=== PATIENT | female | born 1970 | race Caucasian/White ===

== ENCOUNTER 2016-12-26 15:15 | Emergency (ER) | payer BC ==
[2016-12-26 15:33] VITALS: RESP 18
--- NOTE | 2016-12-26 17:04 | ED ---
Recheck HPI - General Chief Complaint: Recheck/Abnormal Lab/Rx Stated Complaint: Abnormal labs Time Seen by Provider: 12/26/16 16:28 Source: patient, RN notes reviewed Mode of arrival: ambulatory Limitations: no limitations - History of Present Illness Initial Comments: 46-year-old male presents emergency Department with chief complaint of anemia. Patient states she has been very tired and fatigued and which she saw her primary care physician Scot sanchez. She states that they checked her thyroid function which was normal. Patient states she does take medication for this. Patient also states that they checked her hemoglobin which the called her today and told her was low that she needed to go to the emergency department. They told her it was 7. Patient denies any melena or hematochezia. Denies any hematemesis copremesis. Patient denies any heavy vaginal bleeding. She states she does take control currently. Patient denies chest pain, shortness of breath. She states she does get very fatigued with any exertion. Patient has no history of anemia other than taking iron tablets when she was . - Related Data Home Medications Medication Instructions Recorded Confirmed Atorvastatin [Lipitor] 10 mg PO HS 10/30/15 12/26/16 Cetirizine HCl [Zyrtec] 10 mg PO DAILY 10/30/15 12/26/16 Levothyroxine Sodium [Levoxyl] 100 mcg PO DAILY 10/30/15 12/26/16 Norgestimate-Ethinyl Estradiol 1 tab PO DAILY 10/30/15 12/26/16 [Tri-Sprintec Tablet] diphenhydrAMINE [Benadryl] 25 mg PO HS PRN 12/11/15 12/26/16 Previous Rx's Medication Instructions Recorded Famotidine [Pepcid] 20 mg PO BID #30 tablet 07/07/16 Ferrous Sulfate [Feosol] 325 mg PO BID #30 tab 12/26/16 Allergies Allergy/AdvReac Type Severity Reaction Status Date / Time Sulfa (Sulfonamide Allergy Unknown Verified 12/26/16 17:03 Antibiotics) Review of Systems ROS Statement: Those systems with pertinent positive or pertinent negative responses have been documented in the HPI. ROS Other: All systems not noted in ROS Statement are negative. Past Medical History Past Medical History: No Reported History, Thyroid Disorder History of Any Multi-Drug Resistant Organisms: None Reported Past Surgical History: Ear Surgery, Orthopedic Surgery Past Psychological History: No Psychological Hx Reported Smoking Status: Never smoker Past Alcohol Use History: None Reported Past Drug Use History: None Reported General Exam Limitations: no limitations General appearance: alert, in no apparent distress Neck exam: Present: normal inspection, full ROM. Absent: tenderness, meningismus, lymphadenopathy Respiratory exam: Present: normal lung sounds bilaterally. Absent: respiratory distress, wheezes, rales, rhonchi, stridor Cardiovascular Exam: Present: regular rate, normal rhythm, normal heart sounds. Absent: systolic murmur, diastolic murmur, rubs, gallop, clicks GI/Abdominal exam: Present: soft, normal bowel sounds. Absent: distended, tenderness, guarding, rebound, rigid Rectal exam: Present: normal inspection, heme (-) stool, other (Exam performed with Lamar PABON). Absent: black stool, bloody stool, hemorrhoids Neurological exam: Present: alert, oriented X3, CN II-XII intact Skin exam: Present: warm, dry, intact, normal color. Absent: rash Course Vital Signs 12/26/16 12/26/16 15:27 17:01 Temperature 98.5 F Pulse Rate 105 H Pulse Rate [ 88 Right Radial] Respiratory 18 Rate Blood Pressure 141/75 O2 Sat by Pulse 100 Oximetry Medical Decision Making - Medical Decision Making 46-year-old female presented emergency department for low anemia. Patient's hemoglobin currently is a 8.3. Patient's vitals are stable. Patient appears to have iron deficiency anemia. Patient be started on iron supplements at this time and while falls for possible scopes including EGD/colonoscopy. Return parameters were discussed. Patient family agreed to plan. - Lab Data Result diagrams: 12/26/16 16:55 12/26/16 16:55 Lab Results 12/26/16 12/26/16 12/26/16 Range/Units 16:55 16:55 16:55 WBC 5.3 (3.8-10.6) k/uL RBC 4.11 (3.80-5.40) m/uL Hgb 8.3 L (11.4-16.0) gm/dL Hct 29.5 L (34.0-46.0) % MCV 71.7 L (80.0-100.0) fL MCH 20.1 L (25.0-35.0) pg MCHC 28.0 L (31.0-37.0) g/dL RDW 15.8 H (11.5-15.5) % PT 10.1 (9.0-12.0) sec INR 1.0 (<1.1) APTT 22.1 (22.0-30.0) sec Sodium 144 (137-145) mmol/L Potassium 3.8 (3.5-5.1) mmol/L Chloride 103 (98-107) mmol/L Carbon Dioxide 28 (22-30) mmol/L Anion Gap 13 mmol/L BUN 9 (7-17) mg/dL Creatinine 0.74 (0.52-1.04) mg/dL Est GFR (MDRD) Af Amer >60 (>60 ml/min/1.73 sqM) Est GFR (MDRD) Non-Af >60 (>60 ml/min/1.73 sqM) Glucose 95 (74-99) mg/dL Calcium 9.6 (8.4-10.2) mg/dL Total Bilirubin 0.4 (0.2-1.3) mg/dL AST 29 (14-36) U/L ALT 29 (9-52) U/L Alkaline Phosphatase 76 (38-126) U/L Total Protein 8.2 (6.3-8.2) g/dL Albumin 4.6 (3.5-5.0) g/dL Stool Occult Blood (Negative) 12/26/16 Range/Units 17:27 WBC (3.8-10.6) k/uL RBC (3.80-5.40) m/uL Hgb (11.4-16.0) gm/dL Hct (34.0-46.0) % MCV (80.0-100.0) fL MCH (25.0-35.0) pg MCHC (31.0-37.0) g/dL RDW (11.5-15.5) % PT (9.0-12.0) sec INR (<1.1) APTT (22.0-30.0) sec Sodium (137-145) mmol/L Potassium (3.5-5.1) mmol/L Chloride (98-107) mmol/L Carbon Dioxide (22-30) mmol/L Anion Gap mmol/L BUN (7-17) mg/dL Creatinine (0.52-1.04) mg/dL Est GFR (MDRD) Af Amer (>60 ml/min/1.73 sqM) Est GFR (MDRD) Non-Af (>60 ml/min/1.73 sqM) Glucose (74-99) mg/dL Calcium (8.4-10.2) mg/dL Total Bilirubin (0.2-1.3) mg/dL AST (14-36) U/L ALT (9-52) U/L Alkaline Phosphatase (38-126) U/L Total Protein (6.3-8.2) g/dL Albumin (3.5-5.0) g/dL Stool Occult Blood Negative (Negative) Disposition Clinical Impression: Anemia, Iron deficiency Disposition: HOME SELF-CARE Condition: Stable Instructions: Iron Deficiency Anemia (ED) Additional Instructions: Please return to the Emergency Department if symptoms worsen or any other concerns. Prescriptions: Ferrous Sulfate [Feosol] 325 mg PO BID #30 tab Referrals: Salvatore Uriarte DO [Primary Care Provider] - 1-2 days Steven Walker MD [Medical Doctor] - 1-2 days Time of Disposition: 17:50
[2016-12-26 17:20] LABS: Aty Lym Flag Slight; CH 20.4; CHCM 28.7; HCT 29.5 % (34.0-46.0); HDW 3.89; HGB 8.3 gm/dL (11.4-16.0); Hypochromasia Marked; MCH 20.1 pg (25.0-35.0); MCV 71.7 fL (80.0-100.0); Microcytosis Moderate; Poikilocytosis Slight; Prothrombin Time 10.1 sec (9.0-12.0); RBC 4.11 m/uL (3.80-5.40); RDW 15.8 % (11.5-15.5); WBC 5.3 k/uL (3.8-10.6); WBC (Perox) 5.37
[2016-12-26 17:22] LABS: ALT 29 U/L (9-52); AST 29 U/L (14-36); Alkaline Phosphatase 76 U/L (38-126); Anion Gap 13 mmol/L; Blood Urea Nitrogen 9 mg/dL (7-17); Calcium 9.6 mg/dL (8.4-10.2); Carbon Dioxide 28 mmol/L (22-30); Chloride 103 mmol/L (98-107); Glucose 95 mg/dL (74-99); Non-African American GFR(MDRD) >60 (>60 ml/min/1.73 sqM); Potassium 3.8 mmol/L (3.5-5.1); Sodium 144 mmol/L (137-145); Total Bilirubin 0.4 mg/dL (0.2-1.3); Total Protein 8.2 g/dL (6.3-8.2)
[2016-12-26 17:29] LABS: Partial Thromboplastin Time 22.1 sec (22.0-30.0)
[2016-12-26 17:58] VITALS: BP 139/67; PULSE 87; TEMP 99.2
[2016-12-26 18:06] LABS: Add Differential Manual Differential
[2016-12-26 18:08] LABS: Nucleated Red Blood Cells 0 /100 WBC (0-0); Total Cells Counted 100
[2016-12-26 18:09] LABS: Manual Review Performed; Ovalocytes Present; Polychromasia Present
== END 2016-12-26 17:58 | disposition home or self-care (01) ==
LOC: EC 15:15
DX: D50.9 Iron deficiency anemia, unspecified (principal); E07.9 Disorder of thyroid, unspecified; Z79.3 Long term (current) use of hormonal contraceptives; Z79.899 Other long term (current) drug therapy; Z88.2 Allergy status to sulfonamides
CPT/HCPCS: 36415; 80053; 82272; 85025; 85610; 85730; 86850; 86900; 86901; 99283

== ENCOUNTER 2017-01-10 11:00 | Day surgery (SDC) | payer BC ==
[2017-01-08 15:27] VITALS: BMI 34.0
[~2017-01-10 11:00] MED LIST: LACTATED RINGERS 1,000 ML IV SCH
[2017-01-10 11:26] VITALS: TEMP 99.7
[2017-01-10] MEDS ORDERED: LIDOCAINE 1% 20 ML VIAL (10MG/ML) FOR IV START INTRADERMA ONE (11:36)
[2017-01-10] MEDS ORDERED: LIDOCAINE 1% INJ 10MG/ML (20 ML MDV) ONE (12:22)
[2017-01-10] MEDS ORDERED: GLUCAGON 1 MG/ML VIAL ONE (12:22)
[2017-01-10] MEDS ORDERED: PROPOFOL 10 MG/ML 20 ML VIAL IV ONE (12:22)
--- NOTE | 2017-01-10 12:54 | P.GSHP ---
History of Present Illness H&P Date: 01/10/17 Chief Complaint: Anemia, GI bleed This a 46-year-old female who's had significant anemia. Her hemoglobin is 7.5 range. She presents today for evaluation for GI bleed. He'll undergo upper and lower endoscopy. - Constitutional Constitutional: Reports as per HPI Past Medical History Past Medical History: Thyroid Disorder Additional Past Medical History / Comment(s): anemia History of Any Multi-Drug Resistant Organisms: None Reported Past Surgical History: Ear Surgery, Orthopedic Surgery Past Anesthesia/Blood Transfusion Reactions: No Reported Reaction Past Psychological History: No Psychological Hx Reported Smoking Status: Never smoker Past Alcohol Use History: None Reported Past Drug Use History: None Reported - Past Family History Mother Family Medical History: Cancer Additional Family Medical History / Comment(s): breast Medications and Allergies Home Medications Medication Instructions Recorded Confirmed Type Atorvastatin [Lipitor] 10 mg PO HS 10/30/15 01/10/17 History Levothyroxine Sodium [Levoxyl] 100 mcg PO DAILY 10/30/15 01/10/17 History Norgestimate-Ethinyl Estradiol 1 tab PO DAILY 10/30/15 01/10/17 History [Tri-Sprintec Tablet] Allergies Allergy/AdvReac Type Severity Reaction Status Date / Time Sulfa (Sulfonamide Allergy Unknown Verified 01/08/17 15:02 Antibiotics) Surgical - Exam Vital Signs Temp Pulse Resp BP Pulse Ox 99.7 F H 105 H 16 136/84 100 01/10/17 11:23 01/10/17 11:23 01/10/17 11:23 01/10/17 11:23 01/10/17 11:23 - General well developed, no distress - Eyes PERRL - ENT normal pinna - Neck no masses - Respiratory normal expansion - Cardiovascular Rhythm: regular - Abdomen Abdomen: soft Assessment and Plan Plan: History of anemia. We'll perform EGD colonoscopy. To evaluate for GI bleed.
[2017-01-10 13:34] VITALS: RESP 18
[2017-01-10 13:49] VITALS: BP 144/80; PULSE 78
--- NOTE | 2017-01-10 14:35 | P.OP ---
Date of Procedure: 01/10/17 Preoperative Diagnosis: GI bleed Postoperative Diagnosis: Mild antral gastritis No evidence of upper GI bleed Lower GI bleed Right colon polyp Large left colon polyp at 40 cm incompletely removed secondary to size of the polyp Procedure(s) Performed: EGD Colonoscopy Anesthesia: MAC Surgeon: Shane Hand Pathology: other (Antrum, right colon polyp, left colon) Condition: stable Disposition: PACU Description of Procedure: The patient's placed on the endoscopy table in the lateral position. She received IV sedation. The gastroscope some placed oropharynx and passed into the esophagus and stomach. Scope was then placed through the pylorus. The first and second portion duodenum appeared normal. There is known to blood in the duodenum. Scope was then brought back the antrum and this was minimal inflamed a biopsies performed. Scope was unretroflexed and remainder of the stomach appeared normal. There was no hiatal hernia. The GE junction was at 40 cm. The distal esophagus appeared normal. The proximal esophagus appeared normal. Scope was withdrawn. Next digital rectal exam was performed which revealed a small amount of blood on the examining finger. The flexible colonoscope was then placed patient anus passed throughout the entire colon. The ileocecal valve was visually is. The cecum appeared normal. In the ascending colon there is a small polyp seen this is removed with a snare. Scope was then withdrawn remainder the transverse colon appeared normal. The descending colon was examined at the 40 cm glenna there was a large peduncular polyp which took up most of the lumen of the colon. This was removed in pieces with a biopsy forcep and the snare. However it was impossible to remove the entire polyp due to the size. The was in spasm and it was impossible to ink spot the area of the polyp. This point the scope was withdrawn remainder the descending sigmoid and rectum was normal. Scope was then withdrawn from the patient. Patient and her family were given the results of colonoscopy. She'll follow-up the office next week she'll undergo repeat colonoscopy in about 2 weeks.
== END 2017-01-10 14:31 | disposition home or self-care (01) ==
LOC: ORWHC2ENDO 11:00
PROVIDERS: ATTEND Surgery
DX: D12.2 Benign neoplasm of ascending colon (principal); D12.4 Benign neoplasm of descending colon; K29.50 Unspecified chronic gastritis without bleeding; D64.9 Anemia, unspecified; E03.9 Hypothyroidism, unspecified; E78.5 Hyperlipidemia, unspecified; Z88.2 Allergy status to sulfonamides; Z79.899 Other long term (current) drug therapy
CPT/HCPCS: 81025; 88305; 88342; 45380; 45385; 43239; J1610; J2001; J2704; 44404

== ENCOUNTER 2017-02-05 11:23 | Day surgery (SDC) | payer BC ==
[2017-01-31 14:37] VITALS: BMI 32.5
[2017-02-05 12:12] VITALS: RESP 16; TEMP 99.4
[2017-02-05] MEDS ORDERED: LIDOCAINE 1% 20 ML VIAL (10MG/ML) FOR IV START INTRADERMA ONE (12:15)
[2017-02-05] MEDS ORDERED: PROPOFOL 10 MG/ML 20 ML VIAL IV ONE (13:04)
--- NOTE | 2017-02-05 13:06 | P.GSHP ---
History of Present Illness H&P Date: 02/05/17 Chief Complaint: Colon polyp This a 46-year-old female who presents today for colonoscopy. Patient had a previous colonoscopy where a very large left colon polyp was partially removed. Patient presents today for reexamination in order to remove the remaining polyp. Past Medical History Past Medical History: Thyroid Disorder Additional Past Medical History / Comment(s): anemia History of Any Multi-Drug Resistant Organisms: None Reported Past Surgical History: Ear Surgery, Orthopedic Surgery Additional Past Surgical History / Comment(s): COLONOSCOPY AND EGD Past Anesthesia/Blood Transfusion Reactions: No Reported Reaction Past Psychological History: No Psychological Hx Reported Smoking Status: Never smoker Past Alcohol Use History: None Reported Past Drug Use History: None Reported - Past Family History Mother Family Medical History: Cancer Additional Family Medical History / Comment(s): breast Medications and Allergies Home Medications Medication Instructions Recorded Confirmed Type Atorvastatin [Lipitor] 10 mg PO HS 10/30/15 02/05/17 History Levothyroxine Sodium [Levoxyl] 100 mcg PO DAILY 10/30/15 02/05/17 History Norgestimate-Ethinyl Estradiol 1 tab PO DAILY 10/30/15 02/05/17 History [Tri-Sprintec Tablet] Allergies Allergy/AdvReac Type Severity Reaction Status Date / Time Sulfa (Sulfonamide Allergy Rash/Hives Verified 02/05/17 12:09 Antibiotics) Surgical - Exam Vital Signs Temp Pulse Resp BP Pulse Ox 99.4 F 102 H 16 140/70 99 02/05/17 12:11 02/05/17 12:11 02/05/17 12:11 02/05/17 12:11 02/05/17 12:11 - General well developed, no distress - Eyes PERRL - ENT normal pinna - Neck no masses - Respiratory normal expansion - Cardiovascular Rhythm: regular - Abdomen Abdomen: soft, non tender Assessment and Plan Plan: Colon polyp. We'll perform colonoscopy.
--- NOTE | 2017-02-05 13:20 | P.OP ---
Date of Procedure: 02/05/17 Preoperative Diagnosis: Colon polyp Postoperative Diagnosis: Multiple colon polyps Procedure(s) Performed: Colonoscopy Anesthesia: MAC Surgeon: Shane Hand Pathology: other (Colon polyps at 45 cm and 40 cm) Condition: stable Disposition: PACU Description of Procedure: Patient's placed on the endoscopy table lateral position. She received IV sedation. Digital rectal exam was performed which revealed no abnormalities. The flexible colonoscope was then placed patient anus and passed throughout the entire colon. The patient had a polyp at the 45 cm glenna this is removed with a snare. There was a another polyp seen in the 40 cm glenna and this was removed with snare and forcep. The remainder of the descending sigmoid colon and rectum appeared normal. Scope was withdrawn for patient.
[2017-02-05 13:40] VITALS: BP 124/80; PULSE 75
== END 2017-02-05 14:41 | disposition home or self-care (01) ==
LOC: ORWHC2ENDO 11:23
PROVIDERS: ATTEND Surgery
DX: D12.4 Benign neoplasm of descending colon (principal); E07.9 Disorder of thyroid, unspecified; Z79.899 Other long term (current) drug therapy; Z88.2 Allergy status to sulfonamides
CPT/HCPCS: 81025; 88305; 45385; J2704

== ENCOUNTER 2017-08-26 07:11 | Day surgery (SDC) | payer BC ==
[2017-08-22 08:45] VITALS: BMI 34.0
[~2017-08-26 07:11] MED LIST changes: -LACTATED RINGERS 1,000 ML IV SCH; +MIDAZOLAM 2 MG/2 ML VIAL IV PRN; +MORPHINE SULFATE 10 MG/ML SYRINGE IV PRN; +ONDANSETRON 4 MG/2 ML VIAL IVP PRN; +ceFAZolin IN SWFI 2 GM/20 ML SYRINGE IVP ONE
[2017-08-26] MEDS ORDERED: LIDOCAINE 1% 20 ML VIAL (10MG/ML) FOR IV START INTRADERMA ONE (07:41)
[2017-08-26] MEDS: LACTATED RINGERS 1,000 ML IV SCH ×2 (07:41→20:26)
[2017-08-26] MEDS ORDERED: SUCCINYLCHOLINE CHLORIDE 100 MG/5 ML SYR IV ONE (09:14)
[2017-08-26] MEDS ORDERED: MORPHINE SULFATE (PF) 0.3 MG/0.3 ML SYR ONE (09:14)
[2017-08-26] MEDS ORDERED: LIDOCAINE 1% INJ 10MG/ML (20 ML MDV) ONE (09:14)
[2017-08-26] MEDS ORDERED: fentaNYL (PF) 50 MCG/ML 2 ML AMP ONE (09:14)
[2017-08-26] MEDS ORDERED: GLYCOPYRROLATE 0.2 MG/ML 2 ML VIAL ONE (09:14)
[2017-08-26] MEDS ORDERED: PROPOFOL 10 MG/ML 20 ML VIAL IV ONE (09:14)
[2017-08-26] MEDS ORDERED: KETOROLAC 30 MG/ML 1 ML VIAL ONE (09:14)
[2017-08-26] MEDS ORDERED: VASOPRESSIN 20 UNIT/ML 1 ML VIAL SQ ONE (09:28)
[2017-08-26] MEDS ORDERED: BACITRACIN 500 UNIT/GM OINT 28.4 GM TUBE TOPICAL ONE ×2 (09:40→10:04)
[2017-08-26] MEDS ORDERED: ONDANSETRON 4 MG/2 ML VIAL IVP PRN (10:11)
[2017-08-26] MEDS ORDERED: IBUPROFEN 600 MG TAB PO PRN (10:11)
[2017-08-26] MEDS ORDERED: Acetaminophen-Codeine 300-30mg TAB PO PRN (10:11)
[2017-08-26] MEDS ORDERED: ZOLPIDEM 5 MG TAB PO PRN (10:11)
[2017-08-26] MEDS ORDERED: SIMETHICONE 80 MG CHEWABLE PO PRN (10:11)
--- NOTE | 2017-08-26 10:11 | P.OP ---
Date of Procedure: 08/26/17 Preoperative Diagnosis: fibroid uterus, continued menorrhagia, anemia. Postoperative Diagnosis: same, normal-appearing ovaries bilaterally. Procedure(s) Performed: vaginal hysterectomy Anesthesia: FEDERICAA Surgeon: Haily Cole Scrap Carrier #1: Lorenza Gonzales Estimated Blood Loss (ml): 200 IV fluids (ml): 600 Urine output (ml): 250 Pathology: other (cervix and uterus) Condition: stable Disposition: PACU Description of Procedure: patient is brought to the operating suite after spinal with Duramorph is placed. She is positioned in the dorsal lithotomy position. The cervix vagina perineum periurethral and perirectal areas are all prepped and draped in usual sterile fashion. urine hCG is negative. Antibiotics are given. Bladder is drained for 200 mL of clear yellow urine. The appropriate timeout is performed to assure proper patient and procedural identification. Weighted speculum was placed into the vagina. The anterior lip of the cervix is grasped with a double-tooth tenaculum. A kw[place]luk blade scalpel is used to incise the mucosa circumferentially with a V like positioning in the back. Sponge finger is used to sweep the mucosa from the underlying fascial plane. Peritoneum is entered at 6:00, suture tied with 2-0 Vicryl. The large billed speculum is then placed into the peritoneal cavity. At all times care is taken to keep the bladder swept well from the operative field to avoid bladder and/or ureteral injury. The right uterosacral cardinal ligament complex is identified , clamped and held laterally with a hemostat. The same is performed on the contralateral side. Uterine vasculature is identified, clamped cut and suture ligated. 2 additional pedicles are taken superior to the vessels. The bladder is again swept carefully away from the operative field. The anterior peritoneum is entered 12:00. The uterus is walked out posteriorly. Dioni clamps are used across the final pedicles and excellent hemostasis is maintained. The uterus and cervix are sent to pathology for evaluation. The pedicles are stitch with a 0 Vicryl suture, flashed, and retied for excellent hemostasis. A sponge stick is used to visualize both ovaries, they are within normal limits to inspection. All pedicles are once again inspected and noted to be clean and dry. The speculum was replaced with the shallow billed speculum. The 2-0 Vicryl suture which was placed at 6:00 is now brought around in a pursestring fashion to close the peritoneum. The previously held uterosacral cardinal ligaments are now brought across to incorporate the opposite ligament as well as vaginal mucosa. 3 additional [id number] sutures are placed on the vaginal mucosa with 0 Vicryl. Again, hemostasis is excellent. Pompa is noted to be draining clear urine. The vagina is packed with one-inch iodophor gauze with basic tracing. All sponge needle and enhancement counts are correct at the end of the procedure. Patient is brought back to recovery room in very good condition with stable vital signs including a blood pressure 123/59, pulse 99, 100% O2 saturation.
[2017-08-26] MEDS: KETOROLAC 30 MG/ML 1 ML VIAL IVP SCH ×2 (13:10→20:23)
[2017-08-26] MEDS: SENNOSIDES-DOCUSATE SODIUM 1 EACH TAB PO SCH (20:23)
[2017-08-27] MEDS: KETOROLAC 30 MG/ML 1 ML VIAL IVP SCH ×2 (00:07→06:09)
[2017-08-27] MEDS ORDERED: KETOROLAC 30 MG/ML 1 ML VIAL ONE (01:15)
[2017-08-27] MEDS ORDERED: LEVOTHYROXINE 112 MCG TAB PO SCH (06:30)
[2017-08-27] MEDS ORDERED: diphenhydrAMINE 25 MG CAP PO STA (06:44)
[2017-08-27 09:31] VITALS: BP 149/79; PULSE 102; RESP 22; TEMP 98.4
--- NOTE | 2017-08-27 10:32 | P.DS ---
Providers Date of admission: 08/26/17 Expected date of discharge: 08/27/17 Attending physician: Haily Cole Primary care physician: Salvatore [facility] Course: This is a 47-year-old white female who presented with a history of known fibroid uterus, menorrhagia, and secondary anemia. Patient had endometrial biopsy in the office which revealed normal appearing tissue. She was placed on control pills and other regimes for cycle control, but ultimately our decision was made to proceed with vaginal hysterectomy. Sonogram revealed fibroid uterus, largest fibroid 6.5 cm in the mid intramural region. Please see my dictated history and physical for details. Patient was admitted and underwent vaginal hysterectomy under my care. Ovaries appeared normal and were left in situ per her wishes. Vagina was packed with iodoform gauze. She did well intraoperatively, please see my dictated operative note for details. This morning the patient is doing well. She is voiding, ambulating, passing flatus, and voiding spontaneously. Her pain is well controlled. There is only scant vaginal bleeding. She is tolerating regular food. Extremities are negative for edema. Abdomen is soft, nontender, no CVA tenderness. There are active bowel sounds noted. Vital signs are stable and she has remained afebrile. Patient is judged to be in very good condition for discharge home. Patient is being discharged home and will follow up with me in the office in 2 weeks. She will use [id number] ibuprofen products, 200 mg pills, 3 every 6 hours as needed for pain. I have reminded her no intercourse, tampons or douching. She is reminded no driving for 2 weeks. No heavy lifting. She will call with any fevers shakes or chills, brisk vaginal bleeding, with any difficulty with voiding or bowel movements, with any pain not alleviated by over -the-counter products, or indeed with any problems or concerns. Patient Condition at Discharge: Good Plan - Discharge Summary Discharge Rx Participant: Yes New Discharge Prescriptions: No Action Levothyroxine Sodium [Levoxyl] 112 mcg PO QAM Atorvastatin [Lipitor] 10 mg PO HS Ferrous Sulfate [Feosol] 325 mg PO BID #30 tab Loratadine [Claritin] 10 mg PO DAILY Norethindrone [Dawn] 0.35 mg PO QAM Augmentin 125 mg PO BID Ofloxacin [Ofloxacin 0.3% Otic Soln] 5 drops BOTH EARS BID Discharge Medication List Atorvastatin [Lipitor] 10 mg PO HS 10/30/15 [History] Levothyroxine Sodium [Levoxyl] 112 mcg PO QAM 10/30/15 [History] Ferrous Sulfate [Feosol] 325 mg PO BID #30 tab 12/26/16 [Rx] Augmentin 125 mg PO BID 08/22/17 [History] Loratadine [Claritin] 10 mg PO DAILY 08/22/17 [History] Norethindrone [Dawn] 0.35 mg PO QAM 08/22/17 [History] Ofloxacin [Ofloxacin 0.3% Otic Soln] 5 drops BOTH EARS BID 08/22/17 [History] Follow up Appointment(s)/Referral(s): Haily Cole MD [STAFF PHYSICIAN] - 2 Weeks
[2017-08-27] MEDS: SENNOSIDES-DOCUSATE SODIUM 1 EACH TAB PO SCH (11:18)
--- NOTE | 2017-08-27 13:30 | P.PN ---
Progress Note - Text 0728 Anesthesia POD 1. Patient is status post vaginal hysterectomy under GET Anesthesia with intra-thecal preservative free morphine 300 g. Minimal pruritus, good post-op analgesia, and no headache or other complication.
== END 2017-08-27 11:55 | disposition home or self-care (01) ==
LOC: OR 07:11 → 6PED 10:05 → OR 08-27 11:55
PROVIDERS: ATTEND Obstetrics & Gynecology
DX: D25.1 Intramural leiomyoma of uterus (principal); D25.0 Submucous leiomyoma of uterus; N87.9 Dysplasia of cervix uteri, unspecified; N80.0 Endometriosis of uterus; N92.0 Excessive and frequent menstruation with regular cycle; D64.9 Anemia, unspecified; E03.9 Hypothyroidism, unspecified; E78.5 Hyperlipidemia, unspecified; Z79.899 Other long term (current) drug therapy; Z88.2 Allergy status to sulfonamides
CPT/HCPCS: 58260; 81025; 86900; 86901; 86850; 88342; 88307; 88341; J2250; J0690; J2405; J2001; J2274; J3010; J1885 ×2; J0330; J2704

== ENCOUNTER → 2017-11-24 | Outpatient (CLI) | payer BC ==
--- NOTE | 2017-11-24 10:44 | MM ---
Reason for exam: clinical finding. Last mammogram was performed 4 months ago. History: Patient had first child at age 37. Family history of breast cancer in mother at age 65. Excisional biopsy of the right breast. Physical Findings: Nurse did not find any significant physical abnormalities on exam. MG Diagnostic Mammo LT w CAD CC and MLO view(s) were taken of the left breast. Prior study comparison: July 29, 2017, mammogram. April 23, 2016, mammogram. The breast tissue is heterogeneously dense. This may lower the sensitivity of mammography. Partially visualized left axillary node. No significant new findings when compared with previous films. These results were verbally communicated with the patient and result sheet given to the patient on 11/24/17. ASSESSMENT: Incomplete: need additional imaging evaluation, BI-RAD 0 RECOMMENDATION: Ultrasound of the left breast.
--- NOTE | 2017-11-24 10:53 | USB ---
Reason for exam: clinical finding. History: Patient had first child at age 37. Family history of breast cancer in mother at age 65. Excisional biopsy of the right breast. US Breast LT Left breast ultrasound includes all four quadrants, the retroareolar region and axilla. Finding demonstrates a 0.7 x 0.5 x 0.8cm cystic lesion at 4 o'clock, a 0.5 x 0.3 x 0.6cm cystic lesion at 10 o'clock and a 1.6 x 1.1 x 1.3cm lesion at the axilla tail, borderline enlarged deep axillary lymph node at the palpable site. Cortex mildly thickened at 3.2mm. A reactive or post inflammatory lymph node is suspected. 3 moth follow up recommended or sooner if there is progressive enlargement noted. These results were verbally communicated with the patient and result sheet given to the patient on 11/24/17. ASSESSMENT: Probably benign, BI-RAD 3 RECOMMENDATION: Ultrasound of the left breast in [address] [facility]
== END | disposition home or self-care (01) ==
LOC: RADMAMWWP 09:06
PROVIDERS: ATTEND Obstetrics & Gynecology
DX: N63.21 Unspecified lump in the left breast, upper outer quadrant (principal); R92.8 Other abnormal and inconclusive findings on diagnostic imaging of breast
CPT/HCPCS: 77065

== ENCOUNTER → 2018-07-08 | Outpatient (CLI) | payer BC ==
[2018-07-08 17:18] LABS: T4, Free (Free Thyroxine) 1.06 ng/dL (0.78-2.19)
== END | disposition home or self-care (01) ==
LOC: LABWHC1 15:12
PROVIDERS: ATTEND Family Medicine
DX: E03.9 Hypothyroidism, unspecified (principal)
CPT/HCPCS: 36415; 84439; 84443

== ENCOUNTER 2018-09-11 09:22 | Day surgery (SDC) | payer BC ==
[2018-09-09 10:50] VITALS: BMI 35.4
[~2018-09-11 09:22] MED LIST changes: +LACTATED RINGERS 1,000 ML IV SCH; -MIDAZOLAM 2 MG/2 ML VIAL IV PRN; -MORPHINE SULFATE 10 MG/ML SYRINGE IV PRN; -ONDANSETRON 4 MG/2 ML VIAL IVP PRN; -ceFAZolin IN SWFI 2 GM/20 ML SYRINGE IVP ONE
[2018-09-11 09:56] VITALS: RESP 18; TEMP 97.8
[2018-09-11] MEDS ORDERED: LACTATED RINGERS 1,000 ML IV ONE (09:57)
[2018-09-11] MEDS ORDERED: LIDOCAINE 1% 20 ML VIAL (10MG/ML) FOR IV START INTRADERMA ONE (10:27)
[2018-09-11] MEDS ORDERED: LIDOCAINE 1% INJ 10MG/ML (20 ML MDV) ONE (10:31)
[2018-09-11] MEDS ORDERED: PROPOFOL 10 MG/ML 20 ML VIAL IV ONE (10:31)
--- NOTE | 2018-09-11 10:36 | P.GSHP ---
History of Present Illness H&P Date: 09/11/18 Chief Complaint: History of left colon polyps This a 48-year-old female who presents today for colonoscopy. Patient had previous history of left colon polyps. Past Medical History Past Medical History: Hyperlipidemia, Thyroid Disorder Additional Past Medical History / Comment(s): MIGRAINE HEADACHE , History of Any Multi-Drug Resistant Organisms: None Reported Past Surgical History: Ear Surgery, Hysterectomy, Orthopedic Surgery Additional Past Surgical History / Comment(s): COLONOSCOPY AND EGD, arthroscopic right knee surgery. Past Anesthesia/Blood Transfusion Reactions: No Reported Reaction Smoking Status: Never smoker - Past Family History Mother Family Medical History: Cancer Additional Family Medical History / Comment(s): breast Medications and Allergies Home Medications Medication Instructions Recorded Confirmed Type Atorvastatin [Lipitor] 10 mg PO HS 10/30/15 09/09/18 History Levothyroxine Sodium [Levoxyl] 100 mcg PO QAM 10/30/15 09/09/18 History Loratadine [Claritin] 10 mg PO DAILY 08/22/17 09/09/18 History Allergies Allergy/AdvReac Type Severity Reaction Status Date / Time Sulfa (Sulfonamide Allergy Rash/Hives Verified 08/26/17 11:54 Antibiotics) Surgical - Exam Vital Signs Temp Pulse Resp BP Pulse Ox 97.8 F 89 18 126/73 97 09/11/18 09:55 09/11/18 09:55 09/11/18 09:55 09/11/18 09:55 09/11/18 09:55 - General well developed, no distress - Eyes PERRL - ENT normal pinna - Neck no masses - Respiratory normal expansion - Cardiovascular Rhythm: regular - Abdomen Abdomen: soft - Integumentary no rash Assessment and Plan Assessment: History of colon polyps. We'll perform colonoscopy.
--- NOTE | 2018-09-11 10:52 | P.OP ---
Date of Procedure: 09/11/18 Preoperative Diagnosis: History of colon polyps Postoperative Diagnosis: Right colon polyp Procedure(s) Performed: Colonoscopy Anesthesia: ERI Surgeon: Shane Hand Pathology: other (Right colon polyp) Condition: stable Disposition: PACU Description of Procedure: Patient's placed on the endoscopy table in the lateral position she received IV sedation. Digital rectal exam was performed which revealed no abnormality. The flexible colonoscope was then placed patient anus and passed throughout the entire colon. The ileocecal valve was visualized. The cecum was normal. In the ascending colon there was a small sessile polyp which was removed with the cold forcep. The remainder of the ascending colon, transverse colon descending colon and sigmoid colon appeared normal. The scope was then brought back the rectum and this appeared normal. Scope was withdrawn for patient.
[2018-09-11 11:28] VITALS: BP 118/71; PULSE 82
== END 2018-09-11 11:44 | disposition home or self-care (01) ==
LOC: ORWHC2ENDO 09:22
PROVIDERS: ATTEND Surgery
DX: Z12.11 Encounter for screening for malignant neoplasm of colon (principal); D12.2 Benign neoplasm of ascending colon; Z86.010 Personal history of colon polyps; E78.5 Hyperlipidemia, unspecified; E07.9 Disorder of thyroid, unspecified; G43.909 Migraine, unspecified, not intractable, without status migrainosus; Z79.890 Hormone replacement therapy; Z79.899 Other long term (current) drug therapy; Z88.2 Allergy status to sulfonamides
CPT/HCPCS: 88305; 45380; J2001; J2704

== ENCOUNTER → 2019-02-12 | Outpatient (CLI) | payer BC ==
--- NOTE | 2019-02-12 14:15 | MM ---
Reason for exam: additional evaluation requested from prior study. Last mammogram was performed 1 year and 3 months ago. History: Patient had first child at age 37. Family history of breast cancer in mother at age 65. Excisional biopsy of the right breast. Physical Findings: Nurse did not find any significant physical abnormalities on exam. MG 3D Diag Mammo W/Cad FIDE Bilateral CC and MLO view(s) were taken. Prior study comparison: November 24, 2017, left breast MG diagnostic mammo LT w CAD. July 29, 2017, mammogram. The breast tissue is extremely dense which could obscure a lesion on mammography. There is chronic nodularity bilaterally. There is no dominant lesion. No significant new findings when compared with previous films. These results were verbally communicated with the patient and result sheet given to the patient on 02/12/19. ASSESSMENT: Incomplete: need additional imaging evaluation, BI-RAD 0 RECOMMENDATION: Ultrasound of the left breast.
--- NOTE | 2019-02-12 14:16 | USB ---
Reason for exam: follow-up at short interval from prior study. History: Patient had first child at age 37. Family history of breast cancer in mother at age 65. Excisional biopsy of the right breast. US Breast LT Left complete breast ultrasound includes all four quadrants, the retroareolar region and axilla. Finding demonstrates a 1.3 x 0.7 x 1.3cm oval, cystic lesion at 4 o'clock. These results were verbally communicated with the patient and result sheet given to the patient on 02/12/19. ASSESSMENT: Benign, BI-RAD 2 RECOMMENDATION: Routine screening mammogram of both breasts in 1 year. Manage patient on a clinical basis.
== END | disposition home or self-care (01) ==
LOC: RADMAMWWP 13:00
PROVIDERS: ATTEND Obstetrics & Gynecology
DX: R92.8 Other abnormal and inconclusive findings on diagnostic imaging of breast (principal)
CPT/HCPCS: 77062; 77066

== ENCOUNTER → 2019-11-10 | Outpatient (CLI) | payer BC ==
--- NOTE | 2019-11-10 14:12 | MM ---
Reason for exam: clinical finding. Last mammogram was performed 9 months ago. History: Patient had first child at age 37. Family history of breast cancer in mother at age 65. Excisional biopsy of the right breast. Physical Findings: Nurse Summary: 1 x 1.5cm nodule in the left breast at 1 o'clock (nurse ts). MG Diagnostic Mammo w CAD FIDE Bilateral CC and MLO view(s) were taken. Prior study comparison: February 12, 2019, bilateral MG 3d diag mammo w/cad FIDE. November 24, 2017, left breast MG diagnostic mammo LT w CAD. The breast tissue is heterogeneously dense. This may lower the sensitivity of mammography. There is a sonographically proven left cyst at 4 o'clock. Right biopsy marker noted. No significant new findings when compared with previous films. These results were verbally communicated with the patient and result sheet given to the patient on 11/10/19. ASSESSMENT: Benign, BI-RAD 2 RECOMMENDATION: Routine screening mammogram of both breasts in 1 year.
--- NOTE | 2019-11-10 14:15 | USB ---
Reason for exam: clinical finding. History: Patient had first child at age 37. Family history of breast cancer in mother at age 65. Excisional biopsy of the right breast. US Breast Limited LT Technologist: Kaycee Kaplan Left limited breast ultrasound including focal area of concern, retroareolar and axilla demonstrates a 1.0 x 0.8 x 0.4cm lymph node at 12 o'clock, a 0.7 x 0.5cm cystic cluster at 1 o'clock, a 1.0 x 1.0 x 0.8cm hypoechoic lesion at 1 o'clock, palpable by nursing and patient therefore biopsy recommended, a 1.6 x 1.6 x 0.8cm cystic lesion at 4 o'clock, a 1.5 x 1.1 x 0.7cm hyperechoic lesion at the axillary tail appears as a lobe of tissue and dense tissue at the posterior nipple. These results were verbally communicated with the patient and result sheet given to the patient on 11/10/19. ASSESSMENT: Suspicious, BI-RAD 4 RECOMMENDATION: Ultrasound core biopsy of the left breast. Called Dr. Cole with mammographic findings and has scheduled an appointment for the patient for 11/18/19 at 2:[address] Hand. PRELIMINARY REPORT CALLED AND FAXED TO DR. HAND ON 11/10/19.
== END | disposition home or self-care (01) ==
LOC: RADMAMWWP 10:55
PROVIDERS: ATTEND Obstetrics & Gynecology
DX: N60.02 Solitary cyst of left breast (principal); R92.8 Other abnormal and inconclusive findings on diagnostic imaging of breast; Z80.3 Family history of malignant neoplasm of breast
CPT/HCPCS: 77066

== ENCOUNTER → 2019-12-13 | Day surgery (SDC) | payer BC ==
[2019-12-13 07:39] VITALS: RESP 16
--- NOTE | 2019-12-13 08:35 | USB ---
EXAMINATION TYPE: US biopsy breast VAD LT DATE OF EXAM: 12/13/2019 CLINICAL HISTORY: R92.8 Abnormal Mammogram. TECHNIQUE: Ultrasound guided core biopsy of left breast. COMPARISON: Left breast ultrasound dated 11/10/2019 FINDINGS: The procedure of ultrasound guided core biopsy was explained to the patient. Benefits, alternatives, and risks were discussed. An informed consent was then obtained. A procedural timeout was performed. The patient was placed in supine positioning for imaging and for the procedure. The overlying skin was prepped and draped in usual sterile fashion. Lidocaine buffered with bicarbonate was used as anesthetic into the skin and subcutaneous tissue up to a 1.0 cm palpable mass at the 1:00 position in the left breast. Under ultrasound guidance, a 12-gauge vacuum assisted biopsy gun device was used to obtain 4 core samples. Following this, a coil-shaped biopsy marker was left in the mass. No mammogram was obtained of the abnormality was palpable and does not have a mammographic correlate. The biopsy marker was clearly seen after it was deployed. The patient tolerated the procedure well without any immediate complication. The patient was kept in the radiology department for short stay after the procedure and then discharged home in stable condition. IMPRESSION: Successful, uncomplicated ultrasound guided core biopsy of a 1.0 cm palpable mass at the 1:00 position in the left breast, possible lipomatous lesion, full pathology results to follow. Pathology Results: Benign LEFT BREAST, NEEDLE CORE BIOPSY: Benign lobulated adipose tissue and microscopic fragment of breast tissue consistent with intramammary lipoma. Recommendation Follow up mammogram of the left breast in 6 months. LUCAD
[2019-12-13 08:49] VITALS: BP 102/6; PULSE 102; TEMP 98.7
== END ==
LOC: RADUSWWP 07:18
PROVIDERS: ATTEND Surgery
DX: N63.21 Unspecified lump in the left breast, upper outer quadrant (principal)
CPT/HCPCS: 88305; 19083; A4648; J2001

== ENCOUNTER → 2020-03-01 | Outpatient (CLI) | payer BC ==
[2020-03-01 18:43] LABS: T4, Free (Free Thyroxine) 1.5 ng/dL (0.80-1.80)
== END | disposition home or self-care (01) ==
LOC: LABWHC1 12:04
PROVIDERS: ATTEND Family Medicine
DX: E03.9 Hypothyroidism, unspecified (principal)
CPT/HCPCS: 36415; 84439; 84443; 84481

== ENCOUNTER → 2020-06-20 | Outpatient (CLI) | payer BC ==
--- NOTE | 2020-06-20 14:50 | USB ---
Reason for exam: follow-up at short interval from prior study. History: Patient had first child at age 37. Family history of breast cancer in mother at age 65. Benign US biopsy breast VAD LT of the left breast, December 13, 2019. Excisional biopsy of the right breast. Physical Findings: Nurse did not find any significant physical abnormalities on exam. US Breast Limited LT Left limited breast ultrasound including focal area of concern, retroareolar and axilla demonstrates a 18 x 9 x 20mm oval, cystic lesion at 4 o'clock, simple thin walled cyst slightly larger versus 11/10/19 and 02/12/19. These results were verbally communicated with the patient and result sheet given to the patient on 06/20/20. ASSESSMENT: Benign, BI-RAD 2 RECOMMENDATION: Routine screening mammogram of both breasts in 5 months. Back on schedule for October 2020.
--- NOTE | 2020-06-20 14:53 | MM ---
Reason for exam: follow-up at short interval from prior study. Last mammogram was performed 7 months ago. History: Patient had first child at age 37. Family history of breast cancer in mother at age 65. Benign US biopsy breast VAD LT of the left breast, December 13, 2019. Excisional biopsy of the right breast. Physical Findings: Nurse did not find any significant physical abnormalities on exam. MG 3D Diag Mammo W/Cad LT CC, MLO, and XCCL view(s) were taken of the left breast. Prior study comparison: November 10, 2019, bilateral MG diagnostic mammo w CAD FIDE. February 12, 2019, bilateral MG 3d diag mammo w/cad FIDE. The breast tissue is heterogeneously dense. This may lower the sensitivity of mammography. Finding #1: There is a 20 mm circumscribed oval mass located 6 cm from the nipple in the middle position of the left breast. Finding #2: There are typically benign round calcifications in the left breast. There is a chronic nodularity in the left breast. Increase in size and no significant changes in finding since February 12, 2019. These results were verbally communicated with the patient and result sheet given to the patient on 06/20/20. ASSESSMENT: Incomplete: need additional imaging evaluation, BI-RAD 0 RECOMMENDATION: Ultrasound of the left breast.
== END | disposition home or self-care (01) ==
LOC: RADUSWWP 12:50
PROVIDERS: ATTEND Surgery
DX: R92.8 Other abnormal and inconclusive findings on diagnostic imaging of breast (principal)
CPT/HCPCS: 77061; 77065

== ENCOUNTER → 2020-10-20 | Outpatient (CLI) | payer BC ==
--- NOTE | 2020-10-20 11:55 | MM ---
Reason for exam: additional evaluation requested from prior study. Last mammogram was performed 4 months ago. History: Patient had first child at age 37. Family history of breast cancer in mother at age 65. Benign US biopsy breast VAD LT of the left breast, December 13, 2019. Excisional biopsy of the right breast. Physical Findings: Nurse Summary: 2cm and 1cm nodule in the left breast at 1 o'clock and 4 o'clock (nurse mj). MG 3D Diag Mammo W/Cad FIDE Bilateral CC, MLO, and XCCL view(s) were taken. Prior study comparison: June 20, 2020, left breast MG 3d diag mammo w/cad LT. November 10, 2019, bilateral MG diagnostic mammo w CAD FIDE. The breast tissue is heterogeneously dense. This may lower the sensitivity of mammography. Finding: There is a 17 mm circumscribed oval mass located 7 cm from the nipple in the left breast, stable. Previous mammotome biopsy in the right and left breast. There is no discrete abnormality at area marked by BB. No significant changes in finding since June 20, 2020 and November 10, 2019. These results were verbally communicated with the patient and result sheet given to the patient on 10/20/20. ASSESSMENT: Benign, BI-RAD 2 RECOMMENDATION: Routine screening mammogram of both breasts in 1 year.
== END | disposition home or self-care (01) ==
LOC: RADMAMWWP 10:23
PROVIDERS: ATTEND Surgery
DX: R92.8 Other abnormal and inconclusive findings on diagnostic imaging of breast (principal)
CPT/HCPCS: 77062; 77066

== ENCOUNTER 2020-11-06 09:38 | Day surgery (SDC) | payer BC ==
[2020-11-06 10:08] VITALS: RESP 16; TEMP 98.3
[2020-11-06] MEDS ORDERED: MIDAZOLAM 2 MG/2 ML VIAL ONE (10:18)
[2020-11-06] MEDS ORDERED: fentaNYL (PF) 50 MCG/ML 2 ML AMP ONE (10:18)
[2020-11-06] MEDS ORDERED: PROPOFOL 10 MG/ML 20 ML VIAL IV ONE (10:18)
[2020-11-06] MEDS ORDERED: LIDOCAINE 1% (10MG/ML) FOR IV START INTRADERMA ONE (10:18)
[2020-11-06] MEDS ORDERED: LIDOCAINE 1% INJ 10MG/ML (20 ML MDV) ONE (10:18)
--- NOTE | 2020-11-06 10:22 | P.GSHP ---
History of Present Illness H&P Date: 11/06/20 Chief Complaint: History of colon polyps This a 50-year-old female who presents today for colonoscopy. Patient's previous history of colon polyps. Past Medical History Past Medical History: Hyperlipidemia, Thyroid Disorder Additional Past Medical History / Comment(s): MIGRAINES History of Any Multi-Drug Resistant Organisms: None Reported Past Surgical History: Ear Surgery, Hysterectomy, Orthopedic Surgery Additional Past Surgical History / Comment(s): COLONOSCOPY AND EGD. arthroscopic right knee surgery. RIGHT BREAST EXCISIONAL X2-BENIGN. RIGHT BREAT ULTRASOUND GUIDED CORE BIOPSY BENIGN-2006 Past Anesthesia/Blood Transfusion Reactions: No Reported Reaction Past Psychological History: No Psychological Hx Reported Smoking Status: Never smoker Past Alcohol Use History: None Reported Past Drug Use History: None Reported - Past Family History Mother Family Medical History: Cancer Additional Family Medical History / Comment(s): breast Medications and Allergies Home Medications Medication Instructions Recorded Confirmed Type Atorvastatin [Lipitor] 10 mg PO HS 10/30/15 11/03/20 History Loratadine [Claritin] 10 mg PO QAM 08/22/17 11/03/20 History Levothyroxine Sodium 125 mcg PO QAM 11/03/20 11/03/20 History Allergies Allergy/AdvReac Type Severity Reaction Status Date / Time Sulfa (Sulfonamide Allergy Rash/Hives Verified 11/06/20 09:58 Antibiotics) Surgical - Exam Vital Signs Temp Pulse Resp BP Pulse Ox 98.3 F 97 16 143/74 94 L 11/06/20 10:07 11/06/20 10:07 11/06/20 10:07 11/06/20 10:07 11/06/20 10:07 - General well developed, well nourished, no distress - Eyes PERRL, normal ocular movement - ENT normal pinna - Neck no masses - Respiratory normal expansion - Cardiovascular Rhythm: regular - Abdomen Abdomen: soft, non tender Assessment and Plan Assessment: History of colon polyps. We'll perform colonoscopy.
--- NOTE | 2020-11-06 10:35 | P.OP ---
Date of Procedure: 11/06/20 Preoperative Diagnosis: History of colon Polyps Postoperative Diagnosis: Colonoscopy Procedure(s) Performed: Colonoscopy Anesthesia: MAC Surgeon: Shane Hand Pathology: none sent Condition: stable Disposition: PACU Description of Procedure: PROCEDURE: The patient was placed on the endoscopy table in the lateral position. Digital rectal examination was performed which revealed no abnormalities. . Flexible colonoscope was then placed in the patient's anus and passed throughout the entire colon. The ileocecal valve was visualized. The cecum, ascending, transverse, descending and sigmoid colon were normal. The rectum was normal as well. There were no masses, polyps or diverticula noted in the entire colon. SUMMARY OF FINDINGS: Normal colonoscopy.
[2020-11-06 11:05] VITALS: BP 133/81; PULSE 85
== END 2020-11-06 11:26 | disposition home or self-care (01) ==
LOC: ORWHC2ENDO 09:38
PROVIDERS: ATTEND Surgery
DX: Z12.11 Encounter for screening for malignant neoplasm of colon (principal); Z86.010 Personal history of colon polyps; E78.5 Hyperlipidemia, unspecified; E07.9 Disorder of thyroid, unspecified; Z86.69 Personal history of other diseases of the nervous system and sense organs; Z98.890 Other specified postprocedural states; Z90.710 Acquired absence of both cervix and uterus; Z79.899 Other long term (current) drug therapy; Z79.890 Hormone replacement therapy; Z88.2 Allergy status to sulfonamides; Z80.3 Family history of malignant neoplasm of breast
CPT/HCPCS: G0105; J2250; J2001; J3010; J2704; 45378

== ENCOUNTER → 2021-09-12 | Outpatient (CLI) | payer BC ==
--- NOTE | 2021-09-12 13:46 | MR ---
EXAMINATION TYPE: MR shoulder RT wo con DATE OF EXAM: 09/12/2021 1:36 PM COMPARISON: NONE HISTORY: Right shoulder pain TECHNIQUE: Multiplanar multispin echo imaging of the right shoulder was performed. FINDINGS: Rotator cuff : There is no complete or bursal/articular sided partial rotator cuff tear. The subscapu hammad constituent of the rotator cuff is intact. Bursa: No bursal effusion or thickening is seen. Musculature: There is no muscular tear, contusion, or atrophy. Acromioclavicular joint : There are mild degenerative changes of the acromioclavicular joint. There is no anterior or lateral acromial downsloping. Osseous structures : There are no fractures or regions of abnormal bone marrow signal intensity. Long biceps tendon : Small amount of fluid along the biceps tendon sheath may reflect biceps tenosyno vitis. The biceps tendon is normally situated within the bicipital groove. No complete or partial bic eps tendon tear is present. Glenohumeral Joint fluid : There is no glenohumeral joint effusion. Cartilage and Bone : No focal hyaline cartilage defects are noted. No Hill-Sachs, reverse Hill-Sachs, or bony Bankart lesions are seen. Labrum : There are no SLAP or soft tissue Bankart lesions. No paralabral cysts are seen. OTHER FINDINGS : none IMPRESSION: 1. Small amount of fluid along the biceps tendon sheath may reflect biceps tenosynovitis. Otherwise u nremarkable study.
== END | disposition home or self-care (01) ==
LOC: RADMRIMAIN 12:55
PROVIDERS: ATTEND Orthopaedic Surgery
DX: M25.511 Pain in right shoulder (principal); R93.7 Abnormal findings on diagnostic imaging of other parts of musculoskeletal system

== ENCOUNTER → 2021-10-18 | Outpatient (CLI) | payer BC ==
[2021-10-18 14:14] LABS: Basophils % (A) 0 %; Eosinophils % (A) 0 %; HCT 42.7 % (34.0-46.0); HGB 14.5 gm/dL (11.4-16.0); Lymphocytes % (A) 38 %; MCH 31.3 pg (25.0-35.0); MCHC 33.9 g/dL (31.0-37.0); MCV 92.5 fL (80.0-100.0); Mean Platelet Volume 6.8; Monocytes # (A) 0.4 k/uL (0-1.0); Monocytes % (A) 7 %; Neutrophils # (A) 2.8 k/uL (1.3-7.7); Neutrophils % (A) 52 %; Platelet Count 292 k/uL (150-450); RBC 4.62 m/uL (3.80-5.40); RDW 12.6 % (11.5-15.5); WBC 5.4 k/uL (3.8-10.6)
[2021-10-18 14:30] LABS: Potassium 4.2 mmol/L (3.5-5.1)
== END | disposition home or self-care (01) ==
LOC: LABPAT 12:13
PROVIDERS: ATTEND Orthopaedic Surgery
DX: Z01.818 Encounter for other preprocedural examination (principal); M75.41 Impingement syndrome of right shoulder
CPT/HCPCS: 36415; 80051; 85025; 93005

== ENCOUNTER 2021-10-31 07:59 | Day surgery (SDC) | payer BC ==
[2021-10-26 14:33] VITALS: BMI 34.0
--- NOTE | 2021-10-30 14:00 | HP ---
HISTORY AND PHYSICAL REASON FOR ADMISSION: Surgery is 10/31/2021. HISTORY OF PRESENT ILLNESS: Nishi Rod is a 51-year-old patient seen with progressive right shoulder pain. We discussed options for treatment. She elected to proceed with right shoulder arthroscopy. Consent was obtained. PAST MEDICAL HISTORY: Hyperlipidemia, hypothyroidism. PAST SURGICAL HISTORY: Right knee arthroscopy, hysterectomy. DAILY MEDICATIONS: Atorvastatin, levothyroxine, vitamins. ALLERGIES: SULFA. SOCIAL HISTORY: She denies tobacco use. PHYSICAL EVALUATION OF THE RIGHT SHOULDER: Flexion 90 degrees, abduction 60 degrees, external rotation 50 degrees with pain and weakness. Tenderness along the anterolateral acromion and rotator cuff insertion. Impingement positive at 60 degrees. Cross-body adduction sign is positive. Drop-arm sign is positive. Distal neurovascular exam is intact. RADIOGRAPHS: Of her right shoulder revealed a type 2 acromion, evidence for acromioclavicular joint osteoarthritis and cystic changes of the tuberosity. MRI right shoulder revealed bicipital tendinitis. IMPRESSION: 1. Right shoulder impingement. 2. Right shoulder acromioclavicular joint osteoarthritis. 3. Right shoulder bicipital tendinitis. 4. Hyperlipidemia. 5. Hypothyroidism. PLAN: Right shoulder arthroscopy with subacromial decompression, arthroscopic Stacey procedure, probable arthroscopic biceps tenotomy and debridement. Surgery is scheduled for 10/31/2021. MMODL / IJN: [id number] /
[~2021-10-31 07:59] MED LIST changes: +DEXAMETHASONE SOD PHOSPHATE 4 MG/ML 1 ML VIAL IV ONE; +HYDROmorphone 0.5 MG/0.5 ML SYRINGE IVP PRN; +LIDOCAINE 1% (10MG/ML) FOR IV START INTRADERMA PRN; +ONDANSETRON 4 MG/2 ML VIAL IVP ONE; +SCOPOLAMINE 1.5MG/72HR PATCH TRANSDERM ONE
[2021-10-31] MEDS ORDERED: MIDAZOLAM 2 MG/2 ML VIAL IVP ONE (09:22)
[2021-10-31] MEDS ORDERED: ROPIVACAINE 5 MG/ML 30 ML VIAL ONE (09:55)
[2021-10-31] MEDS ORDERED: fentaNYL (PF) 50 MCG/ML 2 ML AMP ONE (09:55)
[2021-10-31] MEDS ORDERED: PHENYLEPHRINE-0.9% NACL SYG 1,000 MCG/10 ML SYRINGE ONE (09:55)
[2021-10-31] MEDS ORDERED: LIDOCAINE 1% INJ 10MG/ML (20 ML MDV) ONE (09:55)
[2021-10-31] MEDS ORDERED: PROPOFOL 10 MG/ML 20 ML VIAL IV ONE (09:55)
[2021-10-31] MEDS ORDERED: DEXAMETHASONE SOD PHOSPHATE 4 MG/ML 1 ML VIAL ONE (09:55)
[2021-10-31] MEDS ORDERED: SUCCINYLCHOLINE CHLORIDE 100 MG/5 ML SYR IV ONE (09:55)
--- NOTE | 2021-10-31 11:18 | P.ANPRN ---
Procedure Note - Anesthesia - Nerve Block Performed Right Interscalene Single Time Out Performed: Yes Date of Procedure: 10/31/21 Procedure Start Time: Procedure Stop Time: Location of Patient: PreOp Indication: Acute Post-Operative Pain, Requested by Surgeon Sedation Type: Sedate with meaningful contact maintained Preparation: Sterile Prep, Sterile Dressing Position: Supine Catheter: None Needle Types: Facet Needle Gauge: 21 Ultrasound used to visualize needle placement: Yes Ultrasound used to observe medication spread: Yes Injectate: 0.5% Ropivacaine (see comment for volume) (30 ml + decadron 4 mg) Blood Aspirated: No Pain Paresthesia on Injection Noted: No Resistance on Injection: Normal Image Stored and Saved: Yes Events: Uneventful and Well Tolerated
--- NOTE | 2021-10-31 11:23 | P.OP ---
Date of Procedure: 10/31/21 Preoperative Diagnosis: Right shoulder impingement Postoperative Diagnosis: 1. Right shoulder rotator cuff tear 2. Right shoulder impingement 3. Right shoulder acromioclavicular joint osteoarthritis Procedure(s) Performed: 1. Right shoulder arthroscopic rotator cuff repair 2. Right shoulder arthroscopic subacromial decompression 3. Right shoulder arthroscopic Stacey procedure Implants: 15.5 Arthrex swivel lock anchor Anesthesia: GETA, regional (Interscalene block) Surgeon: Guillermo Holder Estimated Blood Loss (ml): 8 Pathology: none sent Condition: stable Disposition: PACU Indications for Procedure: 51-year-old patient seen with progressive right shoulder pain. After having treatment options discussed, she elected to proceed with arthroscopy. Operative Findings: See description of procedure Description of Procedure: Patient underwent an interscalene block by department of anesthesia. The patient was then taken to the operative suite. The patient underwent a general anesthetic by the department of anesthesia. The patient was placed into a lateral position and secured. There was appropriate padding of the bony prominence. Right shoulder was then prepped and draped in normal sterile orthopedic fashion. We placed the extremity in 10 pounds of longitudinal traction. A posterior incision was now made for a posterior working portal site. The trocar and cannula were inserted into the glenohumeral joint. Arthroscopy was initiated. Spinal needle was now inserted anteriorly, to ascertain the anterior working portal site. An incision was now made in that area, a trocar was inserted followed by a probe. There was some mild fraying of the anterior labrum. There was no significant chondromalacia present. The biceps tendon and anchor appeared stable. I debrided out the superficial fraying of the anterior labrum. I again probed the area and was found to be stable. At this point instruments were removed from the glenohumeral joint. Utilizing the posterior working portal site, the trocar and cannula were inserted into the subacromial space. Arthroscopy initiated. I made an incision 2 fingerbreadths lateral to the acromion. I introduced my trocar followed by my ArthroCare ablator. I now began ablating thick subacromial bursal tissue, which exposed the undersurface of the anterior acromion. There was diminished subacromial space. There was a very prominent anterior acromion. A motorized bur was introduced and a subacromial decompression was performed. I also excised some osteophytes off the inferior aspect of the distal clavicle. The AC joint was visualized and noted to be fairly arthritic. The motorized bur was introduced in the anterior portal site and a Stacey procedure was performed without difficulty, decompressing the AC joint nicely. I turned my attention to the rotator cuff. There was significant partial tearing distal supraspinatus. Upon probing the area there was a full-thickness perforation present. I debrided the margins getting down to stable tendon tissue. I abraded the footprint with a motorized bur. With the assistance of Thang JENNINGS past 3 everted mattress sutures through good bites of rotator cuff tendon. I punched the hole in the footprint area for insertion of an anchor. All 6 limbs of suture were passed through the eyelet of a 5.5 Arthrex swivel lock anchor. I placed the eyelet into the prepunched hole. I held that in position while Thang JENNINGS tension all the sutures and deployed the anchor with good fixation noted. All residual suture limbs were now clipped. We had good compression of the tendon along the entire footprint. Instruments now removed from the portal sites. All portal sites were approximated with nylon suture. Sterile dressings were applied followed by a shoulder sling. Palomo JENNINGS assisted in this complex case. The patient was awakened, transferred to a bed, and taken to recovery in stable condition.
[2021-10-31 11:32] VITALS: TEMP 96.9
[2021-10-31 12:11] VITALS: RESP 20
[2021-10-31 13:18] VITALS: BP 131/85; PULSE 80
== END 2021-10-31 14:01 | disposition home or self-care (01) ==
LOC: OR 07:59
PROVIDERS: ATTEND Orthopaedic Surgery
DX: M75.101 Unspecified rotator cuff tear or rupture of right shoulder, not specified as traumatic (principal); M25.811 Other specified joint disorders, right shoulder; M19.011 Primary osteoarthritis, right shoulder; E78.5 Hyperlipidemia, unspecified; E03.9 Hypothyroidism, unspecified; Z90.710 Acquired absence of both cervix and uterus; Z98.890 Other specified postprocedural states; Z79.890 Hormone replacement therapy; Z79.899 Other long term (current) drug therapy; Z88.2 Allergy status to sulfonamides
CPT/HCPCS: 64415; 76942; 29826; 29827; 29824; C1713; J2250; J1100; J0690; J2405; J2001; J3010; J2795; J2370; J0330; J2704

== ENCOUNTER → 2022-09-24 | Outpatient (CLI) | payer BC ==
--- NOTE | 2022-09-25 10:22 | MM ---
Reason for Exam: Screening (asymptomatic). Last mammogram was performed 1 year(s) and 11 month(s) ago. Patient History: Menarche at age 12. First Full-Term at age 37. Late child-bearing (after 30). Hysterectomy at age 47. Patient has history of breast feeding. Excisional Biopsy on the Right side. 12/13/2019, Benign Core Biopsy on the left side. Mother had breast cancer, age 65. Risk Values: Alyce 5 year model risk: 3.4%. NCI Lifetime model risk: 26.3%. Prior Study Comparison: 04/23/2016 Screening Mammogram, Unknown. 07/29/2017 Screening Mammogram, Unknown. 11/24/2017 Left Diagnostic Ultrasound, [facility]. 02/12/2019 Bilateral Diagnostic Mammogram, [facility]. 02/12/2019 Left Diagnostic Ultrasound, [facility]. 11/10/2019 Bilateral Diagnostic Mammogram, [facility]. 11/10/2019 Left Diagnostic Ultrasound, [facility]. 06/20/2020 Left Diagnostic Ultrasound, [facility]. 06/20/2020 Left Diagnostic Mammogram, [facility]. 10/20/2020 Bilateral Diagnostic Mammogram, [facility]. Tissue Density: The breast tissue is heterogeneously dense. This may lower the sensitivity of mammography. Findings: Analyzed By CAD. Mammotome biopsy clip subareolar region on the right and towards the left axilla are redemonstrated. There are a few scattered tiny benign-appearing round calcifications bilaterally redemonstrated. There is no suspicious new group of microcalcifications or new suspicious mass in either breast. Overall Assessment: Incomplete: need additional imaging evaluation, BI-RAD 0 Management: Diagnostic Breast Ultrasound of the left breast. Targeted ultrasound left axilla due to increasing size lump. Electronically signed and approved by: Omar Levi M.D.
== END | disposition home or self-care (01) ==
LOC: RADMAMWWP 11:38
PROVIDERS: ATTEND Obstetrics & Gynecology
DX: Z12.31 Encounter for screening mammogram for malignant neoplasm of breast (principal); Z80.3 Family history of malignant neoplasm of breast
CPT/HCPCS: 77063; 77067

== ENCOUNTER → 2022-09-30 | Outpatient (CLI) | payer BC ==
--- NOTE | 2022-09-30 09:41 | USB ---
Patient History: Menarche at age 12. First Full-Term at age 37. Late child-bearing (after 30). Hysterectomy at age 47. Patient has history of breast feeding. Excisional Biopsy on the Right side. 12/13/2019, Benign Core Biopsy on the left side. Mother had breast cancer, age 65. Risk Values: Alyce 5 year model risk: 3.4%. NCI Lifetime model risk: 26.3%. Technique: Method: Targeted. Prior Study Comparison: 06/20/2020 Left Diagnostic Ultrasound, [facility]. 06/20/2020 Left Diagnostic Mammogram, [facility]. 10/20/2020 Bilateral Diagnostic Mammogram, [facility]. 09/24/2022 Bilateral MG 3D screening mammo w/cad, [facility]. Findings: The area of palpable concern of the left breast, the axilla of the left breast and the retroareolar of the left breast were scanned. Targeted ultrasound left breast shows no worrisome solid or cystic mass or abnormal fluid collection. Overall Assessment: Negative, BI-RAD 1 Management: Screening Mammogram of both breasts in 1 year. Back on annual schedule. Manage palpable on clinical basis. Results were given to the patient verbally at the time of exam. Electronically signed and approved by: Omar Levi M.D.
== END | disposition home or self-care (01) ==
LOC: RADUSWWP 09:13
PROVIDERS: ATTEND Obstetrics & Gynecology
DX: R92.8 Other abnormal and inconclusive findings on diagnostic imaging of breast (principal); Z80.3 Family history of malignant neoplasm of breast; Z98.890 Other specified postprocedural states